=== PATIENT | male | born 1945 | race Two or more races ===

== ENCOUNTER 2022-08-05 09:04 | Emergency (ER) | payer MEDICARE ==
[~2022-08-05] VITALS: Ht 165.1 cm; Wt 76.8 kg
[~2022-08-05 09:04] MED LIST: ALTA1CAP2 PO; ASPI81TA26 PO; FOLI1TAB11 PO; ISOS1TAB35 PO; LEVO112T2 PO; LOPR1TAB6 PO; NITR4TASL SL; OLAN7.5T8 PO; RAMI1CAP24 PO; ZOCO40TA PO
[2022-08-05] MEDS ORDERED: ASPIRIN 81 MG CHEW TABLET PO ONE (09:25)
[2022-08-05 09:36] LABS: BASO # 0.1 10^3/uL (0.0-0.2); BASO % 0.5 % (0.0-1.0); EOS # 0.3 10^3/uL (0.0-0.5); EOS % 2.7 % (0.0-3.0); HEMATOCRIT 45.6 % (42.0-52.0); HEMOGLOBIN 14.8 g/dl (13.5-17.5); LYMPH # 1.7 10^3/uL (1.5-5.0); LYMPH % 15.6 % (24.0-44.0); MEAN CORPUSCULAR HEMOGLOBIN 31.7 pg (27.0-33.0); MEAN CORPUSCULAR HGB CONC 32.5 g/dl (32.0-36.5); MEAN CORPUSCULAR VOLUME 97.6 fl (80.0-96.0); MONO # 1.1 10^3/uL (0.0-0.8); MONO % 9.5 % (2.0-8.0); NEUTROPHILS # 7.8 10^3/uL (1.5-8.5); NEUTROPHILS % 70.5 % (36.0-66.0); PLATELET COUNT, AUTOMATED 184 10^3/uL (150-450); RED BLOOD COUNT 4.67 10^6/uL (4.30-6.10)
[2022-08-05] MEDS: NITROGLYCERIN 0.4 MG SUBL TABLET SL PRN ×2 (09:36→10:00)
[2022-08-05 10:13] LABS: CK-MB VALUE MASS 6.9 NG/ML (<3.6); MB/CK RELATIVE INDEX 7.04 (< OR =4)
[2022-08-05 10:15] LABS: ALBUMIN 3.9 GM/DL (3.2-5.2); BILIRUBIN,DIRECT 0.2 MG/DL (0.0-0.2); BILIRUBIN,TOTAL 0.6 MG/DL (0.2-1.0); CALCIUM LEVEL 9.1 MG/DL (8.8-10.2); CREATININE FOR GFR 2.37 MG/DL (0.70-1.30); FREE T4 1.16 NG/DL (0.76-1.46); GLOMERULAR FILTRATION RATE 28.6 (>42); POTASSIUM SERUM 3.9 MEQ/L (3.5-5.1); THYROID STIMULATING HORMONE 3.61 uIU/ML (0.358-3.740); TOTAL PROTEIN 7.7 GM/DL (6.4-8.2)
[2022-08-05] MEDS ORDERED: ONDANSETRON 4MG 2ML VIAL IV ONE (10:50)
[2022-08-05] MEDS: MORPHINE 4 MG/ML 1ML VIAL/SYRINGE IV PRN ×2 (11:00→12:22)
[2022-08-05 11:39] LABS: CK-MB VALUE MASS 6.5 NG/ML (<3.6); MB/CK RELATIVE INDEX 7.3 (< OR =4)
[2022-08-05] MEDS ORDERED: CLOPIDOGREL 300 MG TAB (PLAVIX) PO STA (13:12)
[2022-08-05] MEDS ORDERED: HEPARIN DRIP 25,000 UNITS in IV 1 EA IV SCH (13:15)
[2022-08-05] MEDS ORDERED: HEPARIN SOD (PORCINE) 5000UNITS/ML 1ML VIAL/SYRINGE IV ONE (13:15)
[2022-08-05 13:27] LABS: RSV AMPLIFICATION NEGATIVE (NEGATIVE)
[2022-08-05 13:41] LABS: INR 0.96; PARTIAL THROMBOPLASTIN TIME 26.9 SECONDS (24.8-34.2)
[2022-08-05] MEDS ORDERED: NITROGLYCERIN 2% OINT 1 GM *U/D* PKT TOP ONE (14:15)
[2022-08-05 14:56] VITALS: BP 142/98
[2022-08-05 15:49] VITALS: BP 131/90
== END 2022-08-05 15:58 | disposition short-term general hospital (02) ==
LOC: M ED 09:04
DX: I21.4 Non-ST elevation (NSTEMI) myocardial infarction (principal); I82.811 Embolism and thrombosis of superficial veins of right lower extremity; I25.2 Old myocardial infarction; I12.9 Hypertensive chronic kidney disease with stage 1 through stage 4 chronic kidney disease, or unspecified chronic kidney disease; E11.9 Type 2 diabetes mellitus without complications; Z79.82 Long term (current) use of aspirin; Z79.899 Other long term (current) drug therapy
CPT/HCPCS: 71045; 80048; 80076; 82550; 82553; 83690; 83880; 84439; 84443; 84484; 85025; 85610; 85730; 87631; 93005; 93041; 93971; 94760; 96365; 96366; 96375; 99285; J1644; J2270; J2405

== ENCOUNTER 2024-04-07 10:34 | Emergency (ER) | payer MEDICARE ==
[~2024-04-07] VITALS: Ht 165.1 cm; Wt 62.1 kg
[~2024-04-07 10:34] MED LIST changes: -RAMI1CAP24 PO; +RAMI5CAP60 PO; +SIMV-254 PO; -ZOCO40TA PO
[2024-04-07 11:26] LABS: BASO # 0.1 10^3/uL (0.0-0.2); BASO % 0.5 % (0.0-1.0); EOS # 0.3 10^3/uL (0.0-0.5); EOS % 3.1 % (0.0-3.0); HEMATOCRIT 37.7 % (42.0-52.0); HEMOGLOBIN 12.5 g/dl (13.5-17.5); LYMPH # 1.9 10^3/uL (1.5-5.0); LYMPH % 18.2 % (24.0-44.0); MEAN CORPUSCULAR HGB CONC 33.2 g/dl (32.0-36.5); MEAN CORPUSCULAR VOLUME 90.4 fl (80.0-96.0); MONO # 1.1 10^3/uL (0.0-0.8); MONO % 10.1 % (2.0-8.0); NEUTROPHILS # 7.1 10^3/uL (1.5-8.5); NEUTROPHILS % 67.7 % (36.0-66.0); PLATELET COUNT, AUTOMATED 297 10^3/uL (150-450); RED BLOOD COUNT 4.17 10^6/uL (4.30-6.10); WHITE BLOOD COUNT 10.5 10^3/uL (4.0-10.0)
[2024-04-07 11:50] LABS: ALBUMIN 3.6 G/DL (3.2-5.2); BILIRUBIN,DIRECT 0.2 MG/DL (<0.4); BILIRUBIN,TOTAL 0.5 MG/DL (0.3-1.2); CALCIUM LEVEL 9.6 MG/DL (8.3-10.6); CREATININE FOR GFR 2.05 MG/DL (0.70-1.30); GLOMERULAR FILTRATION RATE 33.6 (>42); POTASSIUM SERUM 4.2 MMOL/L (3.5-5.1); TOTAL PROTEIN 6.7 G/DL (5.7-8.2)
[2024-04-07] MEDS: GASTROGRAFIN SOLUTION 30ML PO SCH (12:33)
[2024-04-07] MEDS: METOCLOPRAMIDE INJ 10MG/2ML VIAL IV ONE (12:33)
[2024-04-07] MEDS ORDERED: CLOP75TA2 (12:54)
[2024-04-07] MEDS ORDERED: METO1TAB87 (12:54)
[2024-04-07] MEDS ORDERED: ATOR40TA75 (12:54)
[2024-04-07] MEDS ORDERED: CITA40TA7 (12:54)
[2024-04-07] MEDS ORDERED: REGL10TA6 PO (16:36)
[2024-04-07] MEDS: METOCLOPRAMIDE 10MG TAB PO ONE (16:50)
[2024-04-07 16:52] VITALS: BP 152/94; TEMP 99.7; O2SAT 98
== END 2024-04-07 17:02 | disposition home or self-care (01) ==
LOC: M ED 10:34
DX: K22.2 Esophageal obstruction (principal); I25.119 Atherosclerotic heart disease of native coronary artery with unspecified angina pectoris; I25.2 Old myocardial infarction; I10 Essential (primary) hypertension; E78.5 Hyperlipidemia, unspecified; F17.210 Nicotine dependence, cigarettes, uncomplicated; F10.10 Alcohol abuse, uncomplicated; Z79.1 Long term (current) use of non-steroidal anti-inflammatories (NSAID); Z79.899 Other long term (current) drug therapy
CPT/HCPCS: 71250; 74176; 80048; 80076; 83690; 85025; 93005; 96374; 99285; J2765; Q9963